=== PATIENT | female | born 1965 | race American Indian/Alaskan Native ===

== ENCOUNTER 2016-10-23 21:01 | Emergency (ER) | payer MEDICARE ==
[2016-10-23 21:40] VITALS: BP 119/91
== END 2016-10-23 23:31 | disposition left against medical advice (07) ==
LOC: ED 21:01
DX: Z76.0 Encounter for issue of repeat prescription (principal); I10 Essential (primary) hypertension; Z88.2 Allergy status to sulfonamides; Z53.21 Procedure and treatment not carried out due to patient leaving prior to being seen by health care provider

== ENCOUNTER 2017-10-13 16:21 | Inpatient (IN) | payer MEDICARE ==
[2017-10-13 17:02] LABS: Basophils % (Auto) 0.4 % (0.0-1.8); Eosinophils # (Auto) 0.2 K/mm3 (0.0-0.4); Eosinophils % (Auto) 1.3 % (0.0-4.3); Hematocrit 39.8 % (30.3-42.9); Hemoglobin 12.9 gm/dl (10.1-14.3); Lymphocytes # (Auto) 3.2 K/mm3 (1.2-5.4); Lymphocytes % (Auto) 27.1 % (13.4-35.0); Mean Corpuscular HGB Conc 33 % (30-34); Mean Corpuscular Hemoglobin 30 pg (28-32); Mean Corpuscular Volume 94 fl (79-97); Monocytes % (Auto) 8.1 % (0.0-7.3); Platelet Count 260 K/mm3 (140-440); Red Blood Count 4.24 M/mm3 (3.65-5.03); Red Cell Distribution Width 13.8 % (13.2-15.2)
[2017-10-13 17:22] LABS: Albumin 4.5 g/dL (3.9-5); Calcium 9.4 mg/dL (8.4-10.2)
[2017-10-13] MEDS ORDERED: NACL 0.9% 1000 ML 1,000 ML IV ONE (17:35)
--- NOTE | 2017-10-13 17:45 | Emergency Department Report ---
HPI - General Chief Complaint: Overdose Time Seen by Provider: 10/13/17 16:36 - HPI HPI: 51-year-old female presents to the emergency department via police department after she was found and what appears to be an intoxicated state. The patient admitted to taking an entire bottle of Benadryl. Patient also says that she took one of her Xanax and Ultram. The patient did not specifically say that she took these medications in order to harm herself. However the patient does admit that she was "pissed" and says that the police "busted down my door, busted up my apartment, and took by out in handcuffs." It was hard to understand whether or not this event happened last night or a few days ago. It is also confusing as the patient says that she asked someone "where they keep the Benadryl" but then when I asked if she picked it up at a pharmacy she says "I have Benadryl in my cabinet. Patient denies hallucinations. She has a history of anxiety and chronic back pains. 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 HENT: Normocephalic. Atraumatic. Patient has moist mucous membranes. EYES: Extraocular motions are intact. Pupils equal reactive to light bilaterally. NECK: Supple. Trachea is midline. CHEST/LUNGS: Clear to auscultation. There is no respiratory distress noted. HEART/CARDIOVASCULAR: Regular. There is no tachycardia. There is no murmur. ABDOMEN: Abdomen is soft, nontender. Patient has normal bowel sounds. There is no abdominal distention. SKIN: Skin is warm and dry. NEURO: Patient is awake and oriented but does appear intoxicated. Follows commands. Cranial nerves II through XII grossly intact. MUSCULOSKELETAL: There is no tenderness or deformity. There is no limitation range of motion. There is no evidence of acute injury. ED Course Vital Signs 10/13/17 16:38 Temperature 98 F Pulse Rate 95 H Respiratory 16 Rate Blood Pressure 115/73 O2 Sat by Pulse 94 Oximetry ED Medical Decision Making - Lab Data Result diagrams: 10/13/17 16:42 10/13/17 16:42 - EKG Data -: EKG Interpreted by Me EKG shows normal: sinus rhythm, axis, intervals, QRS complexes, ST-T waves Rate: normal - EKG Data When compared to previous EKG there are: previous EKG unavailable Interpretation: normal EKG - Radiology Data Radiology results: report reviewed Renal ultrasound resulted and was read by radiology as a normal examination. - Medical Decision Making Patient came in admitting to taking a large amount of Benadryl. She did so in response to some personal stressors. She may not necessarily have wanted to kill herself but she took this large overdose of medication knowing that it could cause harm. For this reason the patient has been made a 1013. However as part of her medical clearance, she was found to have renal failure and the patient denies any history of this. A ultrasound of the kidneys was done that does not show any acute process or any signs of any chronic medical renal disease. For these reasons the patient will be admitted medically but will retain her 1013 status. The patient did have fatigue throughout her ED stay but was easily arousable. - Differential Diagnosis depression, bipolar disorder, anticholinergic syndrome, renal failure Critical Care Time: No Critical care attestation.: If time is entered above; I have spent that time in minutes in the direct care of this critically ill patient, excluding procedure time. ED Disposition Clinical Impression: Acute kidney injury Renal failure Qualifiers: Renal failure chronicity: acute Acute renal failure type: unspecified Qualified Code(s): N17.9 - Acute kidney failure, unspecified Antihistamines overdose Qualifiers: Encounter type: initial encounter Injury intent: intentional self-harm Qualified Code(s): T45.0X2A - Poisoning by antiallergic and antiemetic drugs, intentional self-harm, initial encounter Disposition: OP ADMIT IP TO THIS HOSP Is pt being admited?: Yes Condition: Fair Time of Disposition: 18:34
--- NOTE | 2017-10-13 19:22 | Ultrasound Report ---
FINAL REPORT EXAM: US RENAL BILAT HISTORY: CATRACHO TECHNIQUE: Directed sonography of the retroperitoneum. PRIORS: None. FINDINGS: The right kidney measures 8.8 cm in longest dimension and the left kidney measures 10.8 cm in longest dimension. Renal cortical echotexture within normal limits. No intrarenal calculi, significant hydronephrosis or abnormal perinephric fluid collections. Visualized urinary bladder grossly unremarkable. IMPRESSION: 1. No acute findings.
[2017-10-13] MEDS: HEPARIN SUB-Q SCH (21:46)
--- NOTE | 2017-10-14 01:02 | History and Physical Report ---
History of Present Illness Date of examination: 10/13/17 Date of admission: 10/13/17 18:34 Chief complaint: CC Benadryl overdose History of present illness: DIANA 51-year-old female presents to the emergency department via police department after she was found and what appears to be an intoxicated state. The patient admitted to taking an entire bottle of Children's Benadryl Children's Tylenol and Ativan. Patient also says that she took one of her Xanax and Ultram. The patient did not specifically say that she took these medications in order to harm herself. However the patient does admit that she was "pissed" and says that the police "busted down my door, busted up my apartment, and took by out in handcuffs." It was hard to understand whether or not this event happened last night or a few days ago. 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 Surgical History Additional Surgical History: back surgery,herniated c-spine Social History Smoking Status: Current Every Day Smoker Substance Use Type: Alcohol, Marijuana Review of Systems ROS: Stated complaint: OVERDOSE Other details as noted in HPI Comment: Unobtainable due to pts medical conditions Medications and Allergies Allergies Allergy/AdvReac Type Severity Reaction Status Date / Time Sulfa (Sulfonamide Allergy Unknown Verified 10/23/16 21:41 Antibiotics) Active Meds: Active Medications Heparin Sodium (Porcine) (Heparin) 5,000 unit SUB-Q Q8HR MACRO A Last Admin: 10/13/17 21:46 Dose: 5,000 unit Exam - Constitutional Vitals: Temp Pulse Resp BP Pulse Ox 97.6 F 72 20 118/73 96 10/14/17 00:00 10/14/17 00:00 10/14/17 00:00 10/14/17 00:00 10/14/17 00:00 General appearance: Present: mild distress, well-nourished - EENT Eyes: Present: PERRL ENT: hearing intact, clear oral mucosa - Neck Neck: Present: supple, normal ROM - Respiratory Respiratory effort: normal Respiratory: bilateral: CTA - Cardiovascular Heart rate: 70 Rhythm: regular Heart Sounds: Present: S1 & S2. Absent: rub, click - Extremities Extremities: no ischemia, pulses intact, pulses symmetrical, No edema Peripheral Pulses: within normal limits - Abdominal General gastrointestinal: Present: soft, non-tender, non-distended, normal bowel sounds Female genitourinary: Present: normal - Integumentary Integumentary: Present: clear, warm, dry - Musculoskeletal Musculoskeletal: gait normal, strength equal bilaterally - Psychiatric Psychiatric: depressed, other (Altered sensorium) - Neurologic Neurologic: CNII-XII intact, moves all extremities, other (Lin unsteady ) - Allied Health Allied health notes reviewed: nursing, case management Results - Labs CBC & Chem 7: 10/14/17 04:10 10/14/17 04:10 Labs: Laboratory Last Values WBC 12.0 K/mm3 (4.5-11.0) H 10/13/17 16:42 RBC 4.24 M/mm3 (3.65-5.03) 10/13/17 16:42 Hgb 12.9 gm/dl (10.1-14.3) 10/13/17 16:42 Hct 39.8 % (30.3-42.9) 10/13/17 16:42 MCV 94 fl (79-97) 10/13/17 16:42 MCH 30 pg (28-32) 10/13/17 16:42 MCHC 33 % (30-34) 10/13/17 16:42 RDW 13.8 % (13.2-15.2) 10/13/17 16:42 Plt Count 260 K/mm3 (140-440) 10/13/17 16:42 Lymph % (Auto) 27.1 % (13.4-35.0) 10/13/17 16:42 [place] % (Auto) 8.1 % (0.0-7.3) H 10/13/17 16:42 Eos % (Auto) 1.3 % (0.0-4.3) 10/13/17 16:42 Baso % (Auto) 0.4 % (0.0-1.8) 10/13/17 16:42 Lymph # 3.2 K/mm3 (1.2-5.4) 10/13/17 16:42 [place] # 1.0 K/mm3 (0.0-0.8) H 10/13/17 16:42 Eos # 0.2 K/mm3 (0.0-0.4) 10/13/17 16:42 Baso # 0.0 K/mm3 (0.0-0.1) 10/13/17 16:42 Seg Neutrophils % 63.1 % (40.0-70.0) 10/13/17 16:42 Seg Neutrophils # 7.6 K/mm3 (1.8-7.7) 10/13/17 16:42 Sodium 143 mmol/L (137-145) 10/13/17 16:42 Potassium 3.5 mmol/L (3.6-5.0) L 10/13/17 16:42 Chloride 102.2 mmol/L (98-107) 10/13/17 16:42 Carbon Dioxide 24 mmol/L (22-30) 10/13/17 16:42 Anion Gap 20 mmol/L 10/13/17 16:42 BUN 32 mg/dL (7-17) H 10/13/17 16:42 Creatinine 2.1 mg/dL (0.7-1.2) H 10/13/17 16:42 Estimated GFR 30 ml/min 10/13/17 16:42 BUN/Creatinine Ratio 15 % 10/13/17 16:42 Glucose 128 mg/dL (65-100) H 10/13/17 16:42 Calcium 9.4 mg/dL (8.4-10.2) 10/13/17 16:42 Total Bilirubin 0.70 mg/dL (0.1-1.2) 10/13/17 16:42 AST 56 units/L (5-40) H 10/13/17 16:42 ALT 39 units/L (7-56) 10/13/17 16:42 Alkaline Phosphatase 101 units/L (35-129) 10/13/17 16:42 Total Protein 7.5 g/dL (6.3-8.2) 10/13/17 16:42 Albumin 4.5 g/dL (3.9-5) 10/13/17 16:42 Albumin/Globulin Ratio 1.5 % 10/13/17 16:42 Salicylates < 0.3 mg/dL (2.8-20.0) L 10/13/17 16:42 Acetaminophen < 5.0 ug/mL (10.0-30.0) L 10/13/17 16:42 Plasma/Serum Alcohol < 0.01 % (0-0.07) 10/13/17 16:42 - Imaging and Cardiology EKG: report reviewed (NSR No acute changes) Assessment and Plan Advance Directives: Yes (Full code) VTE prophylaxis?: Chemical Plan of care discussed with patient/family: Yes - Patient Problems (1) Antihistamines overdose Current Visit: Yes Status: Acute Qualifiers: Encounter type: initial encounter Injury intent: intentional self-harm Qualified Code(s): T45.0X2A - Poisoning by antiallergic and antiemetic drugs, intentional self-harm, initial encounter Plan to address problem: IV Fluids Suicidal--1013 Has done secto stressors Poison control called IV Fluids Beta blockers for Tachycardia HR in 70s now (2) Acute kidney injury Current Visit: Yes Status: Acute Plan to address problem: IV Fluids for now Renal U/S normal (3) Depression Current Visit: Yes Status: Acute Plan to address problem: Will defer to MH and reg Hospitalist teamregarding starting on Antidepressants (4) Hypokalemia Current Visit: Yes Status: Acute Plan to address problem: Supplemented (5) DVT prophylaxis Current Visit: Yes Status: Acute Plan to address problem: On Lovenox
[2017-10-14] MEDS ORDERED: ZOFRAN IV PRN (01:03)
[2017-10-14] MEDS ORDERED: TYLENOL PO PRN (01:03)
[2017-10-14] MEDS ORDERED: SODIUM CHLORIDE FLUSH SYRINGE 10 ML IV PRN (01:03)
[2017-10-14] MEDS ORDERED: D5NS 1,000 ML IV SCH (02:00)
[2017-10-14 04:29] LABS: Basophils % (Auto) 0.3 % (0.0-1.8); Eosinophils # (Auto) 0.2 K/mm3 (0.0-0.4); Eosinophils % (Auto) 4.1 % (0.0-4.3); Hematocrit 38.3 % (30.3-42.9); Hemoglobin 12.8 gm/dl (10.1-14.3); Lymphocytes # (Auto) 2.5 K/mm3 (1.2-5.4); Lymphocytes % (Auto) 43.6 % (13.4-35.0); Mean Corpuscular HGB Conc 33 % (30-34); Mean Corpuscular Hemoglobin 32 pg (28-32); Mean Corpuscular Volume 95 fl (79-97); Monocytes # (Auto) 0.5 K/mm3 (0.0-0.8); Monocytes % (Auto) 8.5 % (0.0-7.3); Platelet Count 192 K/mm3 (140-440); Red Blood Count 4.04 M/mm3 (3.65-5.03); Red Cell Distribution Width 14.2 % (13.2-15.2)
[2017-10-14 04:44] LABS: Alanine Aminotransferase 33 units/L (7-56); BUN/Creatinine Ratio 20; Blood Urea Nitrogen 22 mg/dL (7-17); Calcium 8.8 mg/dL (8.4-10.2); Hemolysis Index 4
[2017-10-14] MEDS: HEPARIN SUB-Q SCH ×3 (05:16→21:42)
[2017-10-14] MEDS ORDERED: K-DUR PO ONE (06:12)
[2017-10-14 07:09] LABS: Cocaine Screen,Urine PRESUMPTIVE NEGATIVE; Methadone Screen,Urine PRESUMPTIVE NEGATIVE; Opiate Screen,Urine PRESUMPTIVE NEGATIVE
[2017-10-14 07:23] LABS: Bacteria,Urine 1+ /HPF (Negative); Bilirubin,Urine NEG (Negative); Blood,Urine NEG (Negative); Color,Urine Yellow (Yellow); Mucus,Urine FEW /HPF; Urobilinogen,Urine < 2.0 mg/dL (<2.0)
[2017-10-14 07:27] LABS: Amphetamine Screen,Urine PRESUMPTIVE POSITIVE; Benzodiazepines Screen,Urine PRESUMPTIVE POSITIVE; Cannabinoid Screen,Urine PRESUMPTIVE POSITIVE
[2017-10-14 07:40] LABS: Hepatitis A Antibody IgM Non-Reactive (NonReactive); Hepatitis B Core IgM Non-Reactive (NonReactive); Hepatitis B Surface Antigen Non-Reactive (Negative); Hepatitis C Virus Antibody Non-Reactive (NonReactive)
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
[2017-10-14] MEDS: MORPHINE IV PRN (08:51)
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
[2017-10-14] MEDS ORDERED: BENADRYL IV ONE (15:28)
[2017-10-14] MEDS: SODIUM CHLORIDE FLUSH SYRINGE 10 ML IV SCH ×2 (15:49→21:46)
[2017-10-14] MEDS: NS 0.45/KCL 20MEQ 20 MEQ/1,000 ML BAG IV SCH (15:50)
[2017-10-14] MEDS ORDERED: BANOPHEN ANTI-ITCH TP PRN (16:49)
[2017-10-14] MEDS: PERCOCET 5/325 PO PRN (18:58)
[2017-10-14] MEDS: TEMOVATE TP SCH (21:40)
[2017-10-14] MEDS: REMERON PO SCH (21:41)
[2017-10-14] MEDS: XANAX PO PRN (21:41)
[2017-10-15] MEDS: NS 0.45/KCL 20MEQ 20 MEQ/1,000 ML BAG IV SCH (02:16)
[2017-10-15] MEDS: HEPARIN SUB-Q SCH ×3 (05:52→22:10)
[2017-10-15] MEDS: PERCOCET 5/325 PO PRN ×2 (05:59→13:45)
[2017-10-15 06:37] LABS: BUN/Creatinine Ratio 21; Blood Urea Nitrogen 15 mg/dL (7-17); Calcium 9.1 mg/dL (8.4-10.2); Hemolysis Index 1
[2017-10-15] MEDS ORDERED: PEPCID IV SCH (10:00)
[2017-10-15] MEDS: BENADRYL PO SCH ×3 (10:00→18:26)
[2017-10-15] MEDS: SODIUM CHLORIDE FLUSH SYRINGE 10 ML IV SCH (10:01)
[2017-10-15] MEDS ORDERED: NACL 0.45% 1000 ML 1,000 ML IV SCH (11:00)
--- NOTE | 2017-10-15 15:26 | Progress Note ---
Subjective - Reason for Consult Consult date: 10/15/17 Reason for consult: Psychiatry Follow-up - Chief Complaint Chief complaint: "I did not want to kill myself" 51-year-old female presents to the emergency department via police department after she was found and what appears to be an intoxicated state. Today the patient is emotional during the assessment. She is adamant that she didn't want to kill herself when she drink at least a half of bottle of benadryl. She stated that she had the "hive." She stated that she feels alone because her children is located in [place]. Per collateral information from her her daughter Angie Greer at [phone] she stated that she was looking for her mother for the past 2 days. She stated that her mother has a long hx of depression. She denies that her mother may have tried to kill herself prior to her admission to the hospital. She stated that she would like for her mother to return to [place] once she is discharged. The patient denies SI/HI's and AVH's. She denies any side effects of her medications. Mental Status Exam - Vital signs Last Vital Signs Temp 98.2 F 10/15/17 12:00 Pulse 63 10/15/17 12:00 Resp 20 10/15/17 12:00 BP 167/88 10/15/17 12:00 Pulse Ox 99 10/15/17 12:00 - Exam Narrative exam: MSE: Appearance: emotional Behavior: poor eye contact Speech: regular rate and tone Mood: "okay" Affect: congruent to mood Thought Process: circumstantial Thought Content: denies SI/HI's and AVH's Motor Activity: ambulatory Cognition: A/O x 3 Insight: variable Judgment: variable Assessment and Plan Impression: MDD. Unspecified Anxiety DO. Today the patient is emotional during the assessment. The patient is positive for amphetamines, marijuana, and benzos. DDx: R/O Bipolar DO Recommendation/Plan: Continue 1013 and evaluate the patient daily to determine proper dispo. Continue Remeron 15 mg PO for depression and Xanax 0.25 mg Q8hrs PRN for acute anxiety. Discussed possible suicidality/medication induced karina with patient reference Remeron.
[2017-10-15] MEDS ORDERED: APRESOLINE IV PRN (17:04)
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
[2017-10-15] MEDS: NORVASC PO SCH (18:27)
[2017-10-15] MEDS: TEMOVATE TP SCH (18:27)
[2017-10-15] MEDS: PEPCID PO SCH (22:10)
[2017-10-15] MEDS: XANAX PO PRN (22:10)
[2017-10-15] MEDS: REMERON PO SCH (22:10)
[2017-10-16] MEDS: BENADRYL PO SCH ×5 (01:26→23:47)
[2017-10-16] MEDS: TEMOVATE TP SCH ×3 (01:27→21:47)
[2017-10-16] MEDS: SODIUM CHLORIDE FLUSH SYRINGE 10 ML IV SCH ×3 (01:28→21:44)
[2017-10-16] MEDS: HEPARIN SUB-Q SCH ×3 (06:03→21:43)
[2017-10-16 06:08] LABS: BUN/Creatinine Ratio 15; Blood Urea Nitrogen 12 mg/dL (7-17); Calcium 9.2 mg/dL (8.4-10.2); Hemolysis Index 29
[2017-10-16] MEDS: NORVASC PO SCH (10:13)
[2017-10-16] MEDS: PEPCID PO SCH ×2 (10:13→21:42)
[2017-10-16] MEDS: MORPHINE IV PRN ×3 (10:24→23:47)
[2017-10-16] MEDS: PERCOCET 5/325 PO PRN (14:28)
[2017-10-16] MEDS ORDERED: SODIUM CHLORIDE FLUSH SYRINGE 10 ML IV PRN (19:39)
[2017-10-16] MEDS ORDERED: NITROSTAT SL PRN (19:39)
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
[2017-10-16] MEDS ORDERED: BABY ASPIRIN PO STA (19:45)
[2017-10-16] MEDS: PROCARDIA XL PO SCH (21:43)
[2017-10-16] MEDS: REMERON PO SCH (21:43)
--- NOTE | 2017-10-16 22:42 | XRay Report ---
FINAL REPORT EXAM: XR CHEST ROUTINE 2V HISTORY: cp COMPARISON: None available. FINDINGS:: Frontal and lateral views of the chest obtained. Heart upper limits normal in size. No focal consolidation or effusion. No pneumothorax. Visualized bony thorax is grossly intact. Prior plate screw fixation of the lower cervical spine. IMPRESSION:: Heart upper limits normal in size. Lungs are clear.
--- NOTE | 2017-10-16 23:25 | Progress Note ---
Subjective - Reason for Consult Consult date: 10/16/17 Reason for consult: follow up - Chief Complaint Chief complaint: "I slept well." 51-year-old female presents to the emergency department via police department after she was found and what appears to be an intoxicated state. She states she and were having problems. He is in detention. She states they both needed to take time away. She states she slept well last night for the first time in a while. Her daughter, Angie plans to fly from [place] to pick her up and take her mother to her home for a short time. The patient denies SI/HI and AVH. She denies any side effects of her medications. Mental Status Exam - Vital signs Last Vital Signs Temp 98.1 F 10/16/17 20:06 Pulse 68 10/16/17 20:06 Resp 18 10/16/17 20:06 BP 138/86 10/16/17 20:06 Pulse Ox 95 10/16/17 20:06 - Exam Narrative exam: MSE: Appearance: hospital gown/clean Behavior: cooperative,good eye contact Speech: regular rate and tone Mood: "okay" Affect: congruent to mood Thought Process:linear Thought Content: denies SI/HI and AVH Motor Activity: ambulatory Cognition: A/O x 3 Insight: fair Judgment: fair Assessment and Plan Impression: MDD. Unspecified Anxiety DO. The patient is positive for amphetamines, marijuana, and benzos. DDx: R/O Bipolar DO Recommendation/Plan: Continue 1013 and evaluate the patient daily to determine proper dispo. Continue Remeron 15 mg PO for depression and Xanax 0.25 mg Q8hrs PRN for acute anxiety. She has family involvement and a daughter who plans to fly from [place] to attend to her needs.
[2017-10-17] MEDS: HEPARIN SUB-Q SCH ×3 (06:58→21:33)
[2017-10-17] MEDS: MORPHINE IV PRN ×3 (06:58→18:17)
[2017-10-17] MEDS: BENADRYL PO SCH ×3 (06:59→18:20)
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
[2017-10-17] MEDS ORDERED: LEXISCAN IV ONE ×2 (08:57→09:46)
[2017-10-17] MEDS: PEPCID PO SCH ×2 (12:38→21:32)
[2017-10-17] MEDS: PROCARDIA XL PO SCH ×2 (12:38→21:33)
[2017-10-17] MEDS: HCTZ PO SCH (12:38)
[2017-10-17] MEDS: SODIUM CHLORIDE FLUSH SYRINGE 10 ML IV SCH ×2 (12:39→21:35)
[2017-10-17] MEDS: TEMOVATE TP SCH ×2 (12:48→21:35)
--- NOTE | 2017-10-17 19:38 | Progress Note ---
Subjective - Reason for Consult Consult date: 10/17/17 Reason for consult: follow up - Chief Complaint Chief complaint: "I had a stress test this morning." 51-year-old female presents to the emergency department via police department after she was found and what appears to be an intoxicated state. She states she and were having problems. He is in skilled nursing. She states they both needed to take time away. She did not sleep well last night because she was having chest pain. She is undergoing tests and is awaiting results of her stress test. The patient denies SI/HI and AVH. She denies any side effects of her medications. Her daughter, Angie plans to fly from [place] to stay with her for a while. The plans changed. Initially Ms. Leblanc was going to stay with her daughter. Now her daughter plans to stay with her for a short time. Mental Status Exam - Vital signs Last Vital Signs Temp 97.8 F 10/17/17 19:07 Pulse 75 10/17/17 19:07 Resp 16 10/17/17 19:07 BP 128/74 10/17/17 19:07 Pulse Ox 95 10/17/17 19:07 - Exam Narrative exam: MSE: Appearance: hospital gown/clean Behavior: cooperative,good eye contact Speech: regular rate and tone Mood: "okay" Affect: congruent to mood Thought Process:linear Thought Content: denies SI/HI and AVH Motor Activity: ambulatory Cognition: A/O x 3 Insight: fair Judgment: fair Assessment and Plan Impression: MDD. Unspecified Anxiety DO. The patient is positive for amphetamines, marijuana, and benzos. DDx: R/O Bipolar DO Recommendation/Plan: Continue 1013 and evaluate the patient daily to determine proper dispo. Continue Remeron 15 mg PO for depression and Xanax 0.25 mg Q8hrs PRN for acute anxiety. She has family involvement and a daughter who plans to fly from [place] to attend to her needs.
[2017-10-17] MEDS: REMERON PO SCH (21:33)
[2017-10-18] MEDS: BENADRYL PO SCH ×3 (01:10→12:00)
[2017-10-18] MEDS: HEPARIN SUB-Q SCH ×2 (06:27→13:26)
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
[2017-10-18] MEDS: MORPHINE IV PRN ×2 (08:18→13:32)
[2017-10-18] MEDS: PEPCID PO SCH (09:27)
[2017-10-18] MEDS: PROCARDIA XL PO SCH (09:28)
[2017-10-18] MEDS: HCTZ PO SCH (09:28)
[2017-10-18] MEDS: TEMOVATE TP SCH (09:29)
[2017-10-18] MEDS: SODIUM CHLORIDE FLUSH SYRINGE 10 ML IV SCH (09:29)
--- NOTE | 2017-10-18 15:17 | Progress Note ---
Subjective - Reason for Consult Consult date: 10/18/17 Reason for consult: Psychiatry Follow-up - Chief Complaint Chief complaint: "I feel so much better" 51-year-old female presents to the emergency department via police department after she was found and what appears to be an intoxicated. Today the patient is calm and cooperative during the assessment. She stated that she look forward to therapy with her family. She stated that her actions prior to her admission to the hospital was not safe. She stated that her daughter will be residing with her once she is discharged. She stated that she feel safe returning to her home. Currently, her is in [facility]. She denies SI/HI's and AVH's. She stated getting rest last night. The patient would like a referral for outpatient psy services. Mental Status Exam - Vital signs Last Vital Signs Temp 97.8 F 10/18/17 12:46 Pulse 67 10/18/17 12:46 Resp 20 10/18/17 12:46 BP 151/95 10/18/17 12:46 Pulse Ox 97 10/18/17 12:46 - Exam Narrative exam: MSE: Appearance: calm, cooperative Behavior: regular eye contact Speech: regular rate and tone Mood: "okay" Affect: congruent to mood Thought Process: linear Thought Content: denies SI/HI's and AVH's Motor Activity: ambulatory Cognition: A/O x 3 Insight: appropriate Judgment: appropriate Assessment and Plan Impression: MDD. Unspecified Anxiety DO. Today the patient is emotional during the assessment. Unintentional overdose. The patient is no threat to self. DDx: R/O Bipolar DO I. This screening and assessment is based on information collected from the following sources: II. SUICIDE RISK SCREENING (within last 30 days): A.) Suicidal thoughts/behaviors: Yes SUICIDE RISK ASSESSMENT III. FACTORS THAT INCREASE RISK: A.) Demographic and Substance Use Factors: Yes (Medical Marijuana per the patient) B.) Current/Recent Factors (within past 3 months): Psychosocial/Environmental Factors: Marital Issues Physical Illness: None Cognitive/Psychological Factors: None C.) Historical Factors: None D.) Diagnostic/Symptom/Treatment Factors: None E.) Acute Risk Factor Severity (DESC; MILD/MOD/SEVERE): Mild Other factors for this individual that increase risk: None IV. FACTORS THAT DECREASE RISK: Resilience/Protective Factors: Patient want to decrease her stress Other factors for this individual that decrease risk: Patient denies a desire to harm self V. Clinician's Formulation of Risk and Determination of level of Care: This is a 51 year-old AA female who drink more than a half of bottle of benadryl rior to her arrival to the ER. She stated that she had hives wanted them to go away. She acknowledge now that her actions were not safe. Since being hospitalized the patient has consistently denied the desire to harm herself. Additionally, she has become insightful about how to better address her current issues. The patient is not impaired by substance. She is able to take care of her ADLs and is not at imminent risk of harm to self or others. Consequently, it is the opinion of the treatment team that the patient is at low risk of suicide and does not meet criteria to continue an involuntary psychiatric hold. Estimation of Imminent Risk: Low due to the above explanation. Determination of Level of Care based on Suicide Risk: Outpatient follow-up. Narrative description of clinical reasoning. Given the fact that the patient is willing to engage in outpatient services care and has a supportive network ( family), it is reasonable to expect that the patient will seek services. Furthermore, the patient appears future oriented and denies that her intention was to end her life. Therefore, it is reasonable to expect that the patient will engage in outpatient psy services which will reduce further unsafe behaviors. . Plan and Interventions based on Suicide Risk: This patient will likely be stepped down to an outpatient mental health center in the community upon discharge and follow-up within 7 days of her discharge from the hospital. VII. Discharge/After Hours Support Plan: Patient can return back to the ER, call 911 or crisis line if symptoms of depression, anxiety, suicidality return. Recommendation/Plan: Rescind 1013. and evaluate the patient daily to determine proper dispo. Continue Remeron 15 mg PO for depression and Xanax 0.25 mg Q8hrs PRN for acute anxiety. Discussed possible suicidality/medication induced karina with patient reference Remeron. The patient can follow up with [facility] for outpatient psy services.
--- NOTE | 2017-10-18 16:48 | Query- Renal Failure ---
Dear ____Laney Date:__10/18/2017 Motor Generator Set Operator/CDS:__mary jo Phone#:___[phone] Exercise your independent professional judgment when responding to query. Questions asked do not imply a particular answer is desired or expected. We greatly appreciate your clarification on this issue. Clinical Documentation States: 51-year-old female presents to the emergency department via police department after she was found and what appears to be an intoxicated state. The patient admitted to taking an entire bottle of Children's Benadryl Children's Tylenol and Ativan. Patient also says that she took one of her Xanax and Ultram. The patient did not specifically say that she took these medications in order to harm herself. However the patient does admit that she was "pissed" and says that the police "busted down my door, busted up my apartment, and took by out in handcuffs.". Taken from progress note ( ) on 10/16/17. Assessment and plan: Chest pain HTN URGENCY Polysubstance overdose, Possible Suicidal attempt? Acute kidney injury resolved with IVF Renal U/S normal Clinical Findings Show: 10/13/17 10/14/17 10/15/17 Creatinine 2.1 1.1 0.7 Bun/Cr ratio 15 20 21 Please clarify if you mean: Acute Renal Failure with or due to: [ ] Tubular Necrosis [ ] Medullary Necrosis [ x] Vasomotor Nephropathy [ ] Shock Kidney [ ] Tubular Nephrosis [ ] Renal Tubular Stasis [ ] Cortical Necrosis [ ] Acute Renal Failure (unspecified) [ ] Lower Tubular Nephrosis [ ] Other: [ ] Not Applicable Present on Admission: [ x] Yes (Y) [ ] Clinically undeterminable (W) [ ] No (N) Please also document response in your Progress Notes and/or Discharge Summary and indicate if the condition was present on admission. MTDD
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
[2017-10-18 17:55] VITALS: BP 142/94
--- NOTE | 2017-10-19 23:42 | Treadmill Report ---
INDICATION: Chest pain. ORDERING PHYSICIAN: Dr. Davison FINDINGS: There is no scintigraphic evidence of myocardial ischemia. The left ventricle is normal in size and systolic function. The left ventricular ejection fraction is measured at 57%. CONCLUSION: This is a normal myocardial perfusion scan. JOB# [id number] MELANIE/DONNY
== END 2017-10-18 19:09 | disposition home or self-care (01) | DRG 917 ==
LOC: ED 16:21 → 4A 18:34 → EEVIPCON 18:34 → 3A 10-14 11:53
PROVIDERS: ADMIT Internal Medicine; ATTEND Internal Medicine
DX: T45.0X2A Poisoning by antiallergic and antiemetic drugs, intentional self-harm, initial encounter (principal); N17.0 Acute kidney failure with tubular necrosis; E87.0 Hyperosmolality and hypernatremia; R45.851 Suicidal ideations; E87.6 Hypokalemia; F32.9 Major depressive disorder, single episode, unspecified; I16.0 Hypertensive urgency; M32.9 Systemic lupus erythematosus, unspecified; F43.9 Reaction to severe stress, unspecified; F41.9 Anxiety disorder, unspecified; G89.29 Other chronic pain; M54.9 Dorsalgia, unspecified; R74.0 Nonspecific elevation of levels of transaminase and lactic acid dehydrogenase [LDH]; F17.200 Nicotine dependence, unspecified, uncomplicated; F12.90 Cannabis use, unspecified, uncomplicated; Z88.2 Allergy status to sulfonamides; Z71.51 Drug abuse counseling and surveillance of drug abuser; Y92.89 Other specified places as the place of occurrence of the external cause; Z72.89 Other problems related to lifestyle; Z88.1 Allergy status to other antibiotic agents
CPT/HCPCS: 36415; 71046; 76770; 78452; 80048; 80053; 80074; 80307; 80320; 81001; 83735; 84100; 84484; 85025; 85379; 93005; 93010; 93017; 93306; 96360; A9502; G0480; J1200; J1644; J2270; J2785; J2920; J7042